=== PATIENT | female | born 1975 | race Caucasian/White ===

== ENCOUNTER → 2016-10-19 | Outpatient (CLI) | payer OTHER ==
[~2016-10-19] MED LIST: ADVAIR 1001 DISK W/D PO; ALBUTEROL17 GM INH; AMOXICILLIN500 M1 PO; CIPRO; COREG3.125 MG PO; EXCEDRIN MIGRAI1 TA1 PO; FLEXERIL PO; HYDROCODON-ACE1 EACH PO; LORTAB 7.5-5001 TAB; MIDRIN CAPSULE1 CAP PO; NEXIUM PO; NO MEDICATIONS; PHENERGAN PO; SYMBICORT80 INH; ULTRAM PO; VICODIN 5/500 T1 TAB PO; VOLTAREN75 MG PO; ZYRTEC10 M2 PO
--- NOTE | ~2016-10-19 | MY11 ---
[facility] A Service of [facility] RADIOLOGY TEXT RESULTS PATIENT: TL ALVARENGA LOCATION: [facility] : 71 UNIT #: [id number] AGE: [address]: SHARONA SNOWDEN APRN SEX: F ORDER DR: [id number] [facility]. [place], [place] [address] [id number] O MR#: [id number] Acc #: [id number] NAME: TL ALVARENGA : 1975 SEX: F STUDY DATE/TIME: 10/19/2016 8:23 UNIT: [facility] ROOM: STUDY DESCRIPTION: MY Mammogram Screening Dig [place] Attending Physician: Sharona Snowden Aprn Referring Physician: Sharona Snowden Aprn Ordering Physician: Sharona Snowden Aprn Primary Care Physician: Sharona Snowden Aprn MEDICAL IMAGING REPORT This report is preliminary unless electronic signature is present EXAM Bilateral screening mammogram with CAD 10/19/2016 HISTORY 40-year-old asymptomatic female with no personal or family history of breast cancer. Patient does have some indeterminate calcifications seen on a prior mammogram. FINDINGS The background breast parenchyma is heterogenously dense. No suspicious mass, microcalcification, or architectural distortion. There is a subtle area of microcalcifications in the medial right breast, however these are unchanged from at least July 2014 and considered to be benign. IMPRESSION Benign mammogram. Patients over the age of 40 are entered into a reminder system with target due date for the next mammogram. A result letter will also be sent to the patient. BIRADS: 2 Benign finding RECOMMENDATIONS: Annual screening mammogram. Dictated by... Jerson Freeman M.D. THIS IS AN ELECTRONICALLY VERIFIED REPORT Jerson Freeman M.D. at 10/19/2016 12:37 PM EVIE/rodrigo [facility] A Service of [facility] RADIOLOGY TEXT RESULTS PATIENT: TL ALVARENGA LOCATION: [facility] : 71 UNIT #: [id number] AGE: [address]: SHARONA SNOWDEN APRN SEX: F ORDER DR: TD: 10/19/2016 10:21 JOB #: [id number] MEDICAL IMAGING REPORT Page 1 of 1 COPY
== END | disposition home or self-care (01) ==
LOC: CWCC 07:34
DX: Z12.31 Encounter for screening mammogram for malignant neoplasm of breast (principal); R92.0 Mammographic microcalcification found on diagnostic imaging of breast
CPT/HCPCS: G0202

== ENCOUNTER 2016-11-15 20:39 | Emergency (ER) | payer OTHER ==
--- NOTE | ~2016-11-15 | CR195 ---
[facility] A Service [facility] RADIOLOGY TEXT RESULTS PATIENT: TL ALVARENGA LOCATION: SED : 71 UNIT #: [id number] AGE: [address]: Ariadna Marti SEX: F ORDER DR: [id number] [address] [address] [id number] E MR#: [id number] Acc #: [id number] NAME: TL ALVARENGA : 1975 SEX: F STUDY DATE/TIME: 11/15/2016 20:46 UNIT: [facility] ROOM: STUDY DESCRIPTION: CR Neck Soft Tissue Attending Physician: Ariadna Marti Pa-C Ordering Physician: Ariadna Marti Pa-C Primary Care Physician: Sharona Padilla Aprn MEDICAL IMAGING REPORT This report is preliminary unless electronic signature is present. EXAM Soft tissue neck AP and lateral HISTORY Foreign body sensation in throat for 3 days. FINDINGS AP and lateral soft tissue views of the neck demonstrate no precervical soft tissue swelling. No opaque soft tissue foreign body. No epiglottic enlargement. No precervical soft tissue swelling. Reversal at the midcervical lordosis could be due to positioning. Mild degenerative disc space narrowing at C5-C6 and small anterior marginal osteophytes from C4-C6. IMPRESSION 1. No opaque soft tissue foreign body. 2. Mild degenerative changes mid and lower cervical spine. 3. Slight reversal of the midcervical lordosis could be due to positioning. Dictated by... Eddy Whyte M.D. THIS IS AN ELECTRONICALLY VERIFIED REPORT Eddy Whyte M.D. at 11/16/2016 5:15 PM DFL/rnr TD: 11/16/2016 02:28 JOB #: [id number] MEDICAL IMAGING REPORT [facility] A Service [facility] RADIOLOGY TEXT RESULTS PATIENT: TL ALVARENGA LOCATION: [facility] : 71 UNIT #: [id number] AGE: [address]: Ariadna Marti SEX: F ORDER DR: Page 1 of 1
== END 2016-11-15 21:51 | disposition home or self-care (01) ==
LOC: SED 20:39
DX: R13.10 Dysphagia, unspecified (principal); J45.909 Unspecified asthma, uncomplicated; K21.9 Gastro-esophageal reflux disease without esophagitis; F17.210 Nicotine dependence, cigarettes, uncomplicated; Z79.899 Other long term (current) drug therapy
CPT/HCPCS: 70360; 87651; 99283